=== PATIENT | female | born 1970 | race Caucasian/White ===

== ENCOUNTER 2017-06-15 15:51 | Emergency (ER) | payer OTHER ==
[2017-06-15 16:03] VITALS: BP 147/107
--- NOTE | 2017-06-15 16:08 | UC ---
Abdominal Pain Female HPI - HPI Summary HPI Summary: 46 year old female presents with complains of severe LLQ pain. I am concerned about diverticulitis and will send her to the ER. - History of Current Complaint Chief Complaint: UCGeneralIllness Stated Complaint: PERSONAL Time Seen by Provider: 06/15/17 15:53 Hx Obtained From: Patient Onset/Duration: Sudden Onset Severity Initially: Moderate Severity Currently: Moderate Pain Scale Used: 0-10 Numeric - 8 Location: Discrete At: LLQ Radiates to: Back Allergies/Adverse Reactions: Allergies Allergy/AdvReac Type Severity Reaction Status Date / Time No Known Allergies Allergy Verified 06/15/17 15:54 Home Medications: Home Medications Albuterol HFA INHALER* [Ventolin HFA Inhaler*] 1 puff DAILY 06/15/17 [History Confirmed 06/15/17] Loratadine [Claritin] 10 mg DAILY 06/15/17 [History Confirmed 06/15/17] Montelukast Sodium TAB* [Singulair 10 MG TAB*] 10 mg DAILY 06/15/17 [History Confirmed 06/15/17] PMH/Surg Hx/FS Hx/Imm Hx Previously Healthy: Yes - Surgical History Surgical History: None - Social History Alcohol Use: Occasionally Substance Use Type: None Smoking Status (MU): Heavy Every Day Tobacco Smoker Type: Cigarettes Amount Used/How Often: 1 PPD - Immunization History Most Recent Influenza Vaccination: 2017 Review of Systems Constitutional: Negative Skin: Negative Eyes: Negative ENT: Negative Respiratory: Negative Cardiovascular: Negative Gastrointestinal: Abdominal Pain - LLQ Genitourinary: Negative Motor: Negative Neurovascular: Negative Musculoskeletal: Negative Neurological: Negative Psychological: Negative All Other Systems Reviewed And Are Negative: Yes Physical Exam Triage Information Reviewed: Yes Vital Signs: Initial Vital Signs Temp 36.0 C 06/15/17 15:56 Pulse 115 06/15/17 15:56 Resp 18 06/15/17 15:56 BP 147/107 06/15/17 15:56 Pulse Ox 99 06/15/17 15:56 Vital Signs Reviewed: Yes Eye Exam: Normal ENT Exam: Normal Dental Exam: Normal Neck exam: Normal Neck: Positive: 1 Respiratory Exam: Normal Cardiovascular Exam: Normal Abdomen Description: Positive: Other: - LLQ PAIN Musculoskeletal Exam: Normal Neurological Exam: Normal Psychological Exam: Normal Skin Exam: Normal Abd Pain Female Course/Dx - Differential Dx/Diagnosis Provider Diagnoses: LLQ PAIN Discharge - Discharge Plan Condition: Stable Disposition: OTHER Discharge Disposition Comment: patient suggested to go to the er for severe llq pain Patient Education Materials: Diverticulitis (ED) Referrals: No Primary Care Phys,NOPCP [Primary Care Provider] -
== END 2017-06-15 16:17 ==
LOC: UCCORT 15:51
DX: R10.32 Left lower quadrant pain (principal); F17.210 Nicotine dependence, cigarettes, uncomplicated
CPT/HCPCS: 99212; G0463

== ENCOUNTER 2018-07-16 18:00 | Emergency (ER) | payer OTHER ==
[2018-07-16 18:32] VITALS: BP 141/74
--- NOTE | 2018-07-16 19:10 | UC ---
Ear Complaint HPI - HPI Summary HPI Summary: right ear pain and throbbing for a couple of days with decreased hearing - History of Current Complaint Chief Complaint: UCEar Stated Complaint: RIGHT EAR PAIN Time Seen by Provider: 07/16/18 19:09 Hx Obtained From: Patient Hx Last Menstrual Period: no menses; early menopause ?: No Onset/Duration: Sudden Onset, Lasting Days - 3, Still Present Pain Intensity: 6 Pain Scale Used: 0-10 Numeric Aggravating Factors: Nothing Alleviating Factors: Nothing - Allergies/Home Medications Allergies/Adverse Reactions: Allergies Allergy/AdvReac Type Severity Reaction Status Date / Time fluconazole Allergy Rash Verified 07/16/18 18:26 Home Medications: Home Medications Varenicline Tartrate [Chantix] 1 mg BID 07/16/18 [History Confirmed 07/16/18] PMH/Surg Hx/FS Hx/Imm Hx Previously Healthy: No Respiratory History: Asthma - Surgical History Surgical History: None - Family History Known Family History: Positive: None - Social History Occupation: Disabled Lives: With Family Alcohol Use: Occasionally Substance Use Type: None Smoking Status (MU): Heavy Every Day Tobacco Smoker Type: Cigarettes Amount Used/How Often: 1/2 PPD - Immunization History Most Recent Influenza Vaccination: 2017 Review of Systems All Other Systems Reviewed And Are Negative: Yes Constitutional: Positive: Negative Skin: Positive: Negative Eyes: Positive: Negative ENT: Positive: Ear Ache - right ear pain Respiratory: Positive: Negative Cardiovascular: Positive: Negative Gastrointestinal: Positive: Negative Genitourinary: Positive: Negative Motor: Positive: Negative Neurovascular: Positive: Negative Musculoskeletal: Positive: Negative Neurological: Positive: Negative Psychological: Positive: Negative Is Patient Immunocompromised?: No Physical Exam Triage Information Reviewed: Yes Appearance: Well-Appearing, No Pain Distress, Obese Vital Signs: Initial Vital Signs Temp 97.9 F 07/16/18 18:28 Pulse 80 07/16/18 18:28 Resp 19 07/16/18 18:28 BP 141/74 07/16/18 18:28 Pulse Ox 99 07/16/18 18:28 Vital Signs Reviewed: Yes Eye Exam: Normal Eyes: Positive: Conjunctiva Clear ENT Exam: Normal ENT: Positive: Normal ENT inspection, Hearing grossly normal, Pharynx normal, TMs normal - left, TM bulging - right, Uvula midline. Negative: Nasal congestion, Tonsillar swelling, Tonsillar exudate, Trismus, Muffled voice, Hoarse voice, Sinus tenderness Neck exam: Normal Neck: Positive: Supple, Nontender, No Lymphadenopathy Respiratory Exam: Normal Respiratory: Positive: Chest non-tender, Lungs clear, Normal breath sounds, No respiratory distress, No accessory muscle use Cardiovascular Exam: Normal Cardiovascular: Positive: RRR, No Murmur, Pulses Normal, Brisk Capillary Refill Musculoskeletal Exam: Normal Musculoskeletal: Positive: Strength Intact, ROM Intact, No Edema Neurological Exam: Normal Neurological: Positive: Alert, Muscle Tone Normal Psychological Exam: Normal Skin Exam: Normal Ear Complaint Course/Dx - Course Course Of Treatment: continue with mucolytic and decongestant, tylenol / ibuprofen for pain augmentin follow with pcp prn - Differential Dx/Diagnosis Provider Diagnosis: Acute serous otitis media of right ear without rupture Discharge - Sign-Out/Discharge Documenting (check all that apply): Patient Departure All imaging exams completed and their final reports reviewed: No Studies - Discharge Plan Condition: Stable Disposition: HOME Prescriptions: Amoxicillin/Clavulanate TAB* [Augmentin TAB 875*] 875 mg PO BID 9 Days #18 tab Patient Education Materials: Antitussive/Decongestant (By mouth), Ear Infection (ED), Hypertension (ED) Referrals: Aubrie Meraz [Primary Care Provider] - 2 Weeks - Billing Disposition and Condition Condition: STABLE Disposition: Home
[2018-07-16] MEDS ORDERED: Amoxicillin/Clavulanate TAB* 875 MG PO ONE ×2 (19:24→19:25)
== END 2018-07-16 19:36 | disposition home or self-care (01) ==
LOC: UCCORT 18:00
DX: H65.01 Acute serous otitis media, right ear (principal); Z88.3 Allergy status to other anti-infective agents; F17.210 Nicotine dependence, cigarettes, uncomplicated
CPT/HCPCS: 99212; A9270-GY; G0463

== ENCOUNTER 2019-02-01 20:14 | Emergency (ER) | payer OTHER ==
[2019-02-01 20:26] VITALS: BP 142/86
[2019-02-01] MEDS ORDERED: Phenazopyridine TAB* 100 MG PO ONE (20:47)
[2019-02-01] MEDS ORDERED: Cephalexin CAP* 500 MG PO ONE (20:47)
--- NOTE | 2019-02-01 20:47 | UC ---
UC General HPI - HPI Summary HPI Summary: pt c/o a uti. describes as burning with urination plus some blood, frequency and urgency. hx same. denie fever, abdominal pain and flank pain. - History of Current Complaint Chief Complaint: UCGU Stated Complaint: URINARY Hx Obtained From: Patient Hx Last Menstrual Period: no menses; early menopause Pain Intensity: 10 - Allergy/Home Medications Allergies/Adverse Reactions: Allergies Allergy/AdvReac Type Severity Reaction Status Date / Time fluconazole Allergy Rash Verified 02/01/19 20:27 PMH/Surg Hx/FS Hx/Imm Hx Respiratory History: Asthma - Surgical History Surgical History: None - Family History Known Family History: Positive: None - Social History Alcohol Use: Occasionally Substance Use Type: None Smoking Status (MU): Heavy Every Day Tobacco Smoker Type: Cigarettes Amount Used/How Often: 1/2 PPD - Immunization History Most Recent Influenza Vaccination: 2017 Review of Systems All Other Systems Reviewed And Are Negative: No Constitutional: Negative: Fever, Chills Gastrointestinal: Negative: Abdominal Pain Genitourinary: Positive: Dysuria, Hematuria, Frequency, Urgency. Negative: Vaginal/Penile Discharge Physical Exam Triage Information Reviewed: Yes Appearance: Well-Appearing Vital Signs: Initial Vital Signs Temp 96.2 F 02/01/19 20:23 Pulse 100 02/01/19 20:23 Resp 18 02/01/19 20:23 BP 142/86 02/01/19 20:23 Pulse Ox 98 02/01/19 20:23 Vital Signs Reviewed: Yes Eyes: Positive: Conjunctiva Clear Neck: Positive: Supple Respiratory: Positive: Lungs clear Cardiovascular: Positive: RRR Abdomen Description: Positive: Nontender, No Organomegaly, Soft. Negative: CVA Tenderness (R), CVA Tenderness (L) Bowel Sounds: Positive: Present Musculoskeletal: Positive: ROM Intact Neurological: Positive: Alert Psychological: Positive: Age Appropriate Behavior Skin Exam: Normal Diagnostics - Laboratory Lab Results: u/a= positive for protein, blood and leukocytes. culture pending. Course/Dx - Diagnoses Provider Diagnosis: UTI (urinary tract infection) Discharge - Sign-Out/Discharge Documenting (check all that apply): Patient Departure All imaging exams completed and their final reports reviewed: No Studies - Discharge Plan Condition: Stable Disposition: HOME Prescriptions: Cephalexin CAP* [Keflex CAP*] 500 mg PO BID 7 Days #14 cap Patient Education Materials: Urinary Tract Infection in Women (ED) Referrals: Aubrie Meraz [Primary Care Provider] - 7 Days - Billing Disposition and Condition Condition: STABLE Disposition: Home
== END 2019-02-01 21:00 | disposition home or self-care (01) ==
LOC: UCCORT 20:14
DX: N39.0 Urinary tract infection, site not specified (principal); F17.210 Nicotine dependence, cigarettes, uncomplicated
CPT/HCPCS: 81003; 87077; 87086; 87186; 99212; A9270-GY; G0463

== ENCOUNTER 2024-05-04 17:09 | Observation (INO) ==
[2024-05-04] MEDS: Ondansetron 4 mg VIAL 2 MG/ML 2 ml VIAL IV ONE (17:35)
[2024-05-04 17:40] LABS: Hematocrit 31.7 % (35-45); Mean Corpuscular Hemoglobin 31.3 pg (27-33); Mean Corpuscular Hgb Conc 31.4 g/dL (31-36); Mean Corpuscular Volume 99.6 fL (80-97); Mean Platelet Volume 8.7 fL (7.5-11.2); Platelet Count 293 10^3/uL (150-450); Red Blood Count 3.18 10^6/uL (3.63-4.92); Red Cell Distribution Width 18.5 % (12-17); White Blood Count 41.5 10^3/uL (3.8-11.8)
[2024-05-04 17:52] LABS: INR 1.41 (0.85-1.14)
[2024-05-04 18:04] LABS: High Sens Troponin Baseline 9 pg/mL (<15)
[2024-05-04 18:19] LABS: ALT 32 U/L (7-52); AST 54 U/L (13-39); Albumin 3.2 g/dL (3.2-5.2); Albumin/Globulin Ratio 1.1 (1-3); Alkaline Phosphatase 592 U/L (35-149); Anion Gap 12 mmol/L (2-16); Blood Urea Nitrogen 16 mg/dL (6-24); CO2 Carbon Dioxide 30 mmol/L (22-32); Calcium 9.5 mg/dL (8.6-10.3); Chloride 91 mmol/L (101-111); Creatinine, Serum 2.52 mg/dL (0.51-0.95); Glucose 109 mg/dL (70-100); Potassium 4.6 mmol/L (3.5-5.0); Sodium 133 mmol/L (135-145); Total Bilirubin 2.1 mg/dL (0.2-1.0); Total Protein 6.2 g/dL (6.4-8.9); eGFR CKD-EPI 21.9 (>60)
[2024-05-04] MEDS: Prochlorperazine 5 mg/ml 2 ml VIAL (10 mg) IV ONE (18:43)
[2024-05-04] MEDS: Lactated Ringers 1000 ml BAG 1,000 ML IV ONE (18:43)
[2024-05-04] MEDS ORDERED: Vancomycin 1,000 MG in NS 0.9% 250 ml 250 ML IVPB ONE (18:58)
[2024-05-04 19:04] LABS: Urine Appearance Turbid; Urine Bilirubin 1+ (Negative); Urine Blood 3+ (Negative); Urine Color Dark-Yellow; Urine Glucose Negative (Negative); Urine Ketones Negative (Negative); Urine Nitrite Negative (Negative); Urine Protein 3+ (>=300 mg/dL) (Negative); Urine Specific Gravity 1.017 (1.002-1.030); Urine Urobilinogen 1+ (Negative); Urine pH 5.5 (5.0-8.0)
[2024-05-04 19:21] LABS: ABS Basophils 0.5 10^3/uL (0.0-0.1); ABS Eosinophils 0.2 10^3/uL (0.0-0.5); ABS Lymphocytes 1.5 10^3/uL (1.0-4.8); ABS Monocytes 1.6 10^3/uL (0.0-0.9); ABS Neutrophils 37.7 10^3/uL (1.5-7.6); ABS Nucleated RBC 0.02 10^3/ul; Anisocytosis 2+; Eosinophil % 0.5 %; Giant Platelets Present; Lymphocyte % 3.5 %; Spherocytes 2+
[2024-05-04 19:25] LABS: High Sensitivity Troponin 1 Hr 10 pg/mL (<15)
[2024-05-04 19:25] LABS: Budding Yeast Present /HPF (Absent); Urine Bacteria 1+ /HPF (Absent); Urine Red Blood Cell 3+(>10/hpf) /HPF (0-Trace); Urine Squamous Epithelial Cell Present /HPF (Absent); Urine Transitional Epithelial Present /HPF (Absent); Urine White Blood Cell 3+(>20/hpf) /HPF (0-Trace)
[2024-05-04] MEDS: Piperacillin/Tazobac 3.375 BAG 3.375 GM/100 ML BAG IV ONE (20:06)
[2024-05-04] MEDS: Vancomycin 2,000 MG in NS 0.9% 500 ml BAG 500 ML IVPB ONE (20:43)
[2024-05-04 22:07] LABS: Magnesium 1.6 mg/dL (1.9-2.7)
[2024-05-04] MEDS ORDERED: Albuterol HFA INHALER 8 gm MDI INH PRN (23:10)
[2024-05-04] MEDS ORDERED: Albuterol/Ipratropium NEB.SOL (2.5/0.5 MG) 3 ML NEB.SOLN INH PRN (23:10)
[2024-05-05] MEDS: Magnesium Sulfate 2 gm BAG 2 GM/50 ML BAG IVPB ONE (00:25)
[2024-05-05] MEDS ORDERED: Sulfur Hexaflouride MICROSPHR 25 MG VIAL IV PRN (00:28)
[2024-05-05] MEDS ORDERED: Acetaminophen IV 1 GM/100ML 1,000 MG/100 ML BAG IV PRN (01:11)
[2024-05-05] MEDS: Morphine 2 MG/ML SYRINGE IV PRN (01:21)
[2024-05-05 01:32] LABS: % Iron Saturation 13 % (15-55); .Transferrin 185 mg/dL (203-362); Cholesterol 168 mg/dL; HDL Cholesterol 19.5 mg/dL; Iron 33 ug/dL (50-212); LDL Cholesterol 88 mg/dL; Total Iron Binding Capacity 259 mcg/dL (250-450); Triglycerides 301 mg/dL; Unsaturated Iron Binding 226 ug/dL
[2024-05-05 01:46] LABS: TSH Ultra Thyroid Stim Horm 15.48 mcIU/mL (0.34-5.60)
[2024-05-05 01:57] LABS: Ferritin 340.3 ng/mL (11-307)
[2024-05-05 01:58] LABS: Folate > 20.00 ng/mL (5.90-24.80)
[2024-05-05 01:59] LABS: Vitamin B12 1081 pg/mL (180-914)
[2024-05-05 04:00] LABS: Urine Creatinine 148.01 mg/dL
[2024-05-05] MEDS ORDERED: Nicotine GUM 4MG FRUIT FLAVOR PO PRN (04:22)
[2024-05-05 05:31] LABS: UR Microalbumin (mg/L) 3020.7 mg/L; Urine Microalbumin/Creatinine 2040.8 mcg/mg (<31)
[2024-05-05 07:36] VITALS: BP 96/80
[2024-05-05] MEDS ORDERED: Nicotine PATCH 21 MG/24 HR PATCH TRANSDERM SCH (09:00)
[2024-05-05] MEDS ORDERED: Heparin 5000 UNITS/ML 1 mL VIAL SUBCUT SCH (21:00)
== END 2024-05-05 07:37 | disposition left against medical advice (07) ==
LOC: EDHOLD 17:09 → ED 17:09 → EDHOLD 05-05 07:36
PROVIDERS: ADMIT Internal Medicine; ATTEND Internal Medicine

== ENCOUNTER 2024-05-14 18:04 | Inpatient (IN) ==
[2024-05-14 19:21] LABS: Hemoglobin 9.6 g/dL (11.5-14.3); Mean Corpuscular Hemoglobin 30.6 pg (27-33); Mean Corpuscular Hgb Conc 31.1 g/dL (31-36); Mean Corpuscular Volume 98.6 fL (80-97); Mean Platelet Volume 8.1 fL (7.5-11.2); Platelet Count 322 10^3/uL (150-450); Red Blood Count 3.15 10^6/uL (3.63-4.92); White Blood Count 36.5 10^3/uL (3.8-11.8)
[2024-05-14 19:27] LABS: INR 1.26 (0.85-1.14)
[2024-05-14] MEDS: cefTRIAXone 1 gm/50 mL D5W 1 GM/50 ML BAG IV ONE (19:30)
[2024-05-14] MEDS: Furosemide 40 mg/4 ml IV VIAL IV ONE (19:41)
[2024-05-14 19:50] LABS: ABS Basophils 0.2 10^3/uL (0.0-0.1); ABS Eosinophils 0.3 10^3/uL (0.0-0.5); ABS Lymphocytes 1.6 10^3/uL (1.0-4.8); ABS Monocytes 1.1 10^3/uL (0.0-0.9); ABS Neutrophils 33.3 10^3/uL (1.5-7.6); ABS Nucleated RBC 0.01 10^3/ul; Anisocytosis 1+; Eosinophil % 0.7 %; Hypochromasia 1+; Lymphocyte % 4.5 %; Polychromasia 1+
[2024-05-14 20:07] LABS: Albumin/Globulin Ratio 1.1 (1-3); C Reactive Protein 49.13 mg/L (<8.01); Calcium 9.4 mg/dL (8.6-10.3); Creatinine, Serum 1.53 mg/dL (0.51-0.95); Globulin 2.8 g/dL (2-4); Potassium 5.3 mmol/L (3.5-5.0); Total Bilirubin 1.6 mg/dL (0.2-1.0); Total Protein 5.8 g/dL (6.4-8.9); eGFR CKD-EPI 39.9 (>60)
[2024-05-14] MEDS: methylPREDNISolone SOD SUCC 125 mg 2 ML VIAL IV ONE (20:41)
[2024-05-14] MEDS: Azithromycin 500 mg/250 ml NS 500 MG/250 ML BAG IVPB ONE (20:43)
[2024-05-14 20:50] LABS: High Sensitivity Troponin 1 Hr 10 pg/mL (<15)
[2024-05-14] MEDS ORDERED: Albuterol HFA INHALER 8 gm MDI INH PRN (21:36)
[2024-05-14] MEDS: Albuterol/Ipratropium NEB.SOL (2.5/0.5 MG) 3 ML NEB.SOLN INH ONE (21:44)
[2024-05-14] MEDS: Albumin Human 5% 25 GM/500 ML BTL IV ONE (22:03)
[2024-05-14] MEDS: Albumin Human 5% 25 GM/500 ML BTL IV SCH (22:08)
[2024-05-14 22:24] LABS: Free T4 0.74 ng/dL (0.61-1.12)
[2024-05-14 23:51] LABS: TSH Ultra Thyroid Stim Horm 17.27 mcIU/mL (0.34-5.60)
[2024-05-15 00:09] LABS: Direct Bilirubin 0.8 mg/dL (0.03-0.18)
[2024-05-15] MEDS: fentaNYL 100 mcg/2 ml 50 MCG/ML VIAL IV SLOW PU PRN (03:00)
[2024-05-15] MEDS: Amiodarone 150 mg IVPREMIX 150 MG/100 ML BAG IV ONE (03:24)
[2024-05-15] MEDS: Amiodarone 360 MG IVPREMIX 360 MG/200 ML BAG IV ONE (03:33)
[2024-05-15] MEDS: Amiodarone 360 MG IVPREMIX 360 MG/200 ML BAG IV SCH ×2 (03:35→10:52)
[2024-05-15] MEDS: fentaNYL 100 mcg/2 ml 50 MCG/ML VIAL ONE (03:44)
[2024-05-15 04:21] LABS: Hematocrit 28.3 % (35-45); Hemoglobin 8.9 g/dL (11.5-14.3); Mean Corpuscular Hemoglobin 30.7 pg (27-33); Mean Corpuscular Hgb Conc 31.4 g/dL (31-36); Mean Corpuscular Volume 97.8 fL (80-97); Mean Platelet Volume 8.1 fL (7.5-11.2); Platelet Count 278 10^3/uL (150-450); Red Blood Count 2.89 10^6/uL (3.63-4.92); Red Cell Distribution Width 18.1 % (12-17); White Blood Count 31.8 10^3/uL (3.8-11.8)
[2024-05-15] MEDS: Mometasone/Formoter 100/5 MDI INH SCH (04:22)
[2024-05-15] MEDS: Albuterol/Ipratropium NEB.SOL (2.5/0.5 MG) 3 ML NEB.SOLN INH PRN (04:23)
[2024-05-15 04:42] LABS: PCO2 Arterial 47 mmHg (35-45); PO2 Arterial 77 mmHg (80-100)
[2024-05-15 04:47] LABS: ABS Basophils 0.2 10^3/uL (0.0-0.1); ABS Eosinophils 0.2 10^3/uL (0.0-0.5); ABS Lymphocytes 1.7 10^3/uL (1.0-4.8); ABS Monocytes 1.1 10^3/uL (0.0-0.9); ABS Neutrophils 26.3 10^3/uL (1.5-7.6); ABS Nucleated RBC 0.01 10^3/ul; Eosinophil % 0.8 %; Lymphocyte % 5.7 %
[2024-05-15 04:48] LABS: Anisocytosis 1+; Polychromasia 1+
[2024-05-15 04:52] LABS: Creatinine, Serum 1.54 mg/dL (0.51-0.95); Magnesium 1.6 mg/dL (1.9-2.7); Potassium 5.2 mmol/L (3.5-5.0); eGFR CKD-EPI 39.6 (>60)
[2024-05-15 05:15] LABS: HIV 4th Generation Nonreactive (Nonreactive)
[2024-05-15] MEDS: Magnesium Sulfate 2 gm BAG 2 GM/50 ML BAG IVPB ONE ×2 (05:36→15:33)
[2024-05-15] MEDS: Magnesium Sulfate 2 gm BAG 2 GM/50 ML BAG ONE (05:40)
[2024-05-15] MEDS: SPIRIVA Respimat (tiotropium) 2.5 mcg/inh Inhaler INH SCH (05:40)
[2024-05-15] MEDS: Nicotine GUM 4MG FRUIT FLAVOR PO PRN (07:57)
[2024-05-15] MEDS: Aspirin EC 81 mg TAB.EC (enteric coated) PO SCH (07:57)
[2024-05-15 08:06] LABS: Hepatitis B Surface Ab Not Immune (Immune)
[2024-05-15 08:12] LABS: Hepatitis C Antibody Reactive (Negative)
[2024-05-15] MEDS: Albumin Human 25% 25 GM/100 ML BTL IV ONE (10:07)
[2024-05-15] MEDS: HYDROmorphone 0.5 MG/0.5 ML SYRINGE IV SLOW PU PRN ×2 (10:08→14:19)
[2024-05-15] MEDS: .Amiodarone 24HR ONLY IV Protocol Order Note IV ONE (11:20)
[2024-05-15] MEDS: Sulfur Hexaflouride MICROSPHR 25 MG VIAL IV PRN (11:25)
[2024-05-15] MEDS: Furosemide 40 mg/4 ml IV VIAL IV SLOW PU ONE (13:00)
[2024-05-15] MEDS: Furosemide 40 mg/4 ml IV VIAL IV ONE (14:19)
[2024-05-15 15:21] LABS: C Reactive Protein 43.55 mg/L (<8.01); Rheumatoid Factor < 10 IU/mL (<15)
[2024-05-15 16:07] LABS: Hepatitis B Surface Antigen Nonreactive (Nonreactive)
[2024-05-15 17:36] LABS: Hepatitis C Antibody Reactive (Negative)
[2024-05-15] MEDS ORDERED: cefTRIAXone 1 gm/50 mL D5W 1 GM/50 ML BAG IV SCH (20:00)
[2024-05-15] MEDS: Metoprolol Tartrate 5 mg VIAL 5 ml VIAL (1 mg/ml) IV PRN (20:06)
[2024-05-15] MEDS ORDERED: Azithromycin 500 mg/250 ml NS 500 MG/250 ML BAG IVPB SCH (21:00)
[2024-05-16 04:42] LABS: Hematocrit 29.2 % (35-45); Hemoglobin 9.1 g/dL (11.5-14.3); Mean Corpuscular Hemoglobin 31.1 pg (27-33); Mean Corpuscular Hgb Conc 31.1 g/dL (31-36); Mean Platelet Volume 8.4 fL (7.5-11.2); Platelet Count 290 10^3/uL (150-450); Red Blood Count 2.92 10^6/uL (3.63-4.92); Red Cell Distribution Width 18.3 % (12-17); White Blood Count 35.9 10^3/uL (3.8-11.8)
[2024-05-16 05:16] LABS: Albumin 3.4 g/dL (3.2-5.2); Albumin/Globulin Ratio 1.4 (1-3); Calcium 9.3 mg/dL (8.6-10.3); Creatinine, Serum 1.66 mg/dL (0.51-0.95); Globulin 2.5 g/dL (2-4); Magnesium 2.2 mg/dL (1.9-2.7); Potassium 5.2 mmol/L (3.5-5.0); Total Bilirubin 1.3 mg/dL (0.2-1.0); Total Protein 5.9 g/dL (6.4-8.9); eGFR CKD-EPI 36.2 (>60)
[2024-05-16 05:53] LABS: ABS Basophils 0.1 10^3/uL (0.0-0.1); ABS Eosinophils 0.1 10^3/uL (0.0-0.5); ABS Lymphocytes 1.7 10^3/uL (1.0-4.8); ABS Monocytes 1.2 10^3/uL (0.0-0.9); ABS Neutrophils 31.4 10^3/uL (1.5-7.6); ABS Nucleated RBC 0.03 10^3/ul; Anisocytosis 1+; Eosinophil % 0.3 %; Nucleated Red Blood Cells % 0.1 %/100WBC (0.0-0.8); Polychromasia 2+
[2024-05-16] MEDS: Amiodarone 400 mg TAB PO SCH (08:44)
[2024-05-16] MEDS: Furosemide 100 mg/10 ml IV VIAL IV SCH ×3 (08:47→18:35)
[2024-05-16 09:38] LABS: Ferritin 236.3 ng/mL (11-307)
[2024-05-16] MEDS: HYDROmorphone 1 MG/1 ML SYRINGE IV ONE (09:42)
[2024-05-16] MEDS: HYDROmorphone 1 MG/1 ML SYRINGE ONE (10:18)
[2024-05-16] MEDS: Lidocaine 1% VIAL 10 MG/ML 30 ML VIAL INJ ONE (10:18)
[2024-05-16] MEDS: Lidocaine 1% VIAL 10 MG/ML 30 ML VIAL ONE (10:18)
[2024-05-16] MEDS: HYDROmorphone 1 MG/1 ML SYRINGE IV PRN (14:02)
[2024-05-16 15:13] LABS: Urine TP Concentration 287 mg/dL
[2024-05-16 17:11] LABS: Urine Appearance Clear; Urine Bilirubin Negative (Negative); Urine Blood 3+ (Negative); Urine Color Yellow; Urine Glucose Negative (Negative); Urine Ketones Negative (Negative); Urine Nitrite Negative (Negative); Urine Protein 1+ (>=30 mg/dL) (Negative); Urine Urobilinogen Negative (Negative); Urine pH 5.5 (5.0-8.0)
[2024-05-16 17:29] LABS: Urine Amorphous Crystals Present /HPF (Absent); Urine Bacteria Absent /HPF (Absent); Urine Red Blood Cell 3+(>10/hpf) /HPF (0-Trace); Urine Squamous Epithelial Cell Present /HPF (Absent); Urine White Blood Cell 1+(6-10/hpf) /HPF (0-Trace)
[2024-05-16] MEDS: HYDROmorphone 0.5 MG/0.5 ML SYRINGE IV PRN (18:35)
[2024-05-17 01:05] LABS: Anion Gap 9 mmol/L (2-16); Blood Urea Nitrogen 38 mg/dL (6-24); CO2 Carbon Dioxide 28 mmol/L (22-32); Calcium 9.2 mg/dL (8.6-10.3); Chloride 98 mmol/L (101-111); Creatinine, Serum 1.77 mg/dL (0.51-0.95); Glucose 104 mg/dL (70-100); Sodium 135 mmol/L (135-145); eGFR CKD-EPI 33.5 (>60)
[2024-05-17 02:20] LABS: Potassium Redraw 5.4 mmol/L (3.5-5.0)
[2024-05-17 04:52] LABS: Hematocrit 29.8 % (35-45); Hemoglobin 9.1 g/dL (11.5-14.3); Mean Corpuscular Hgb Conc 30.6 g/dL (31-36); Mean Corpuscular Volume 101.1 fL (80-97); Mean Platelet Volume 9.2 fL (7.5-11.2); Platelet Count 266 10^3/uL (150-450); Red Blood Count 2.95 10^6/uL (3.63-4.92); Red Cell Distribution Width 18.8 % (12-17); White Blood Count 23.3 10^3/uL (3.8-11.8)
[2024-05-17 05:28] LABS: Anion Gap 9 mmol/L (2-16); Blood Urea Nitrogen 39 mg/dL (6-24); CO2 Carbon Dioxide 26 mmol/L (22-32); Calcium 9.1 mg/dL (8.6-10.3); Chloride 99 mmol/L (101-111); Creatinine, Serum 1.75 mg/dL (0.51-0.95); Glucose 87 mg/dL (70-100); Sodium 134 mmol/L (135-145)
[2024-05-17 05:44] LABS: ABS Basophils 0.1 10^3/uL (0.0-0.1); ABS Eosinophils 0.1 10^3/uL (0.0-0.5); ABS Lymphocytes 1.1 10^3/uL (1.0-4.8); ABS Monocytes 0.9 10^3/uL (0.0-0.9); ABS Neutrophils 21.2 10^3/uL (1.5-7.6); ABS Nucleated RBC 0.02 10^3/ul; Eosinophil % 0.4 %; Lymphocyte % 4.7 %; Nucleated Red Blood Cells % 0.1 %/100WBC (0.0-0.8)
[2024-05-17 05:45] LABS: Polychromasia 2+
[2024-05-17] MEDS ORDERED: HYDROmorphone 1 MG/1 ML SYRINGE IV SLOW PU PRN (08:34)
[2024-05-17] MEDS: HYDROmorphone 0.5 MG/0.5 ML SYRINGE IV PRN (08:44)
[2024-05-17] MEDS: HYDROmorphone 1 MG/1 ML SYRINGE IV SLOW PU PRN (11:35)
[2024-05-17 13:52] LABS: Kappa Free Light Chain 10.9 mg/dL; Lambda Free Light Chain, S 5.76 mg/dL
[2024-05-17 14:44] LABS: Complement C3 145 mg/dL (75 - 175)
[2024-05-18 04:26] LABS: Hematocrit 29.2 % (35-45); Hemoglobin 9.2 g/dL (11.5-14.3); Mean Corpuscular Hemoglobin 31.3 pg (27-33); Mean Corpuscular Hgb Conc 31.4 g/dL (31-36); Mean Corpuscular Volume 99.6 fL (80-97); Mean Platelet Volume 8.8 fL (7.5-11.2); Platelet Count 268 10^3/uL (150-450); Red Blood Count 2.93 10^6/uL (3.63-4.92); Red Cell Distribution Width 18.5 % (12-17); White Blood Count 23.3 10^3/uL (3.8-11.8)
[2024-05-18 05:14] LABS: Potassium 5.2 mmol/L (3.5-5.0)
[2024-05-18 05:15] LABS: Calcium 9.1 mg/dL (8.6-10.3); Creatinine, Serum 1.78 mg/dL (0.51-0.95); eGFR CKD-EPI 33.3 (>60)
[2024-05-18] MEDS: SODIUM ZIRCONIUM CYCLOSILICATE 10 GM PACKET PO ONE (06:11)
[2024-05-18 06:13] LABS: ABS Basophils 0.1 10^3/uL (0.0-0.1); ABS Lymphocytes 1.1 10^3/uL (1.0-4.8); ABS Monocytes 0.7 10^3/uL (0.0-0.9); ABS Neutrophils 21.2 10^3/uL (1.5-7.6); ABS Nucleated RBC 0.02 10^3/ul; Anisocytosis 1+; Eosinophil % 0.1 %; Lymphocyte % 4.9 %; Nucleated Red Blood Cells % 0.1 %/100WBC (0.0-0.8); Polychromasia 1+
[2024-05-18 12:08] LABS: ActiTest Interpretation no activity; Alanine Aminotransferase (ALT) 22 U/L (7-45); Alpha-2-Macroglobulin, S 254 mg/dL (100 - 280); Apolipoprotein A1, S 98 mg/dL (>=140); Bilirubin, Total, S 1.4 mg/dL (0.0 - 1.2); BioPredictive Serial Number 5168376; FibroTest Interpretation severe fibrosis; Gamma Glutamyltransferase GGT 742 U/L (5 - 36); Haptoglobin, S 284 mg/dL (30 - 200)
[2024-05-18 12:47] LABS: C-ANCA Negative (Negative); P-ANCA Negative (Negative)
[2024-05-18 15:03] LABS: Flag, M-protein Isotype Negative (Negative); Immunoglobulin A (IgA), S 336 mg/dL (61 - 356); Immunoglobulin G (IgG), S 985 mg/dL (767 - 1590); Immunoglobulin M (IgM), S 179 mg/dL (37 - 286)
[2024-05-18 16:26] LABS: PLA2R, Immunofluorescence, S Indeterminate (Negative)
[2024-05-19 06:47] LABS: Hematocrit 26.6 % (35-45); Hemoglobin 8.4 g/dL (11.5-14.3); Mean Corpuscular Hemoglobin 31.3 pg (27-33); Mean Corpuscular Hgb Conc 31.6 g/dL (31-36); Mean Corpuscular Volume 98.9 fL (80-97); Mean Platelet Volume 8.7 fL (7.5-11.2); Platelet Count 256 10^3/uL (150-450); Red Blood Count 2.69 10^6/uL (3.63-4.92); Red Cell Distribution Width 17.9 % (12-17); White Blood Count 22.2 10^3/uL (3.8-11.8)
[2024-05-19 07:16] LABS: Calcium 8.9 mg/dL (8.6-10.3); Creatinine, Serum 1.9 mg/dL (0.51-0.95); Magnesium 1.8 mg/dL (1.9-2.7); Potassium 4.3 mmol/L (3.5-5.0); eGFR CKD-EPI 30.8 (>60)
[2024-05-19 08:29] LABS: ABS Basophils 0.2 10^3/uL (0.0-0.1); ABS Eosinophils 0.1 10^3/uL (0.0-0.5); ABS Lymphocytes 1.2 10^3/uL (1.0-4.8); ABS Monocytes 0.9 10^3/uL (0.0-0.9); ABS Neutrophils 19.7 10^3/uL (1.5-7.6); ABS Nucleated RBC 0.01 10^3/ul; Eosinophil % 0.5 %; Lymphocyte % 5.6 %
[2024-05-19 08:30] LABS: Anisocytosis 1+; Polychromasia 1+
[2024-05-20 05:43] LABS: Hematocrit 27.7 % (35-45); Hemoglobin 8.8 g/dL (11.5-14.3); Mean Corpuscular Hemoglobin 30.8 pg (27-33); Mean Corpuscular Hgb Conc 31.7 g/dL (31-36); Mean Corpuscular Volume 97.4 fL (80-97); Mean Platelet Volume 8.6 fL (7.5-11.2); Platelet Count 300 10^3/uL (150-450); Red Blood Count 2.85 10^6/uL (3.63-4.92); Red Cell Distribution Width 18.3 % (12-17); White Blood Count 18.6 10^3/uL (3.8-11.8)
[2024-05-20 06:11] LABS: Calcium 8.7 mg/dL (8.6-10.3); Creatinine, Serum 1.62 mg/dL (0.51-0.95); Magnesium 1.6 mg/dL (1.9-2.7); Potassium 3.9 mmol/L (3.5-5.0); eGFR CKD-EPI 37.3 (>60)
[2024-05-20 07:30] LABS: ABS Basophils 0.1 10^3/uL (0.0-0.1); ABS Eosinophils 0.2 10^3/uL (0.0-0.5); ABS Lymphocytes 1.3 10^3/uL (1.0-4.8); ABS Monocytes 0.9 10^3/uL (0.0-0.9); ABS Neutrophils 16.1 10^3/uL (1.5-7.6); ABS Nucleated RBC 0.01 10^3/ul; Anisocytosis 1+; Eosinophil % 0.9 %; Polychromasia 1+
[2024-05-20] MEDS: Magnesium Sulfate 2 gm BAG 2 GM/50 ML BAG IVPB ONE (11:13)
[2024-05-20] MEDS: Magnesium Sulfate IV 1GM/100ML 1 GM/100 ML BAG IV ONE (12:17)
[2024-05-21 06:24] LABS: Hematocrit 26.5 % (35-45); Hemoglobin 8.4 g/dL (11.5-14.3); Mean Corpuscular Hgb Conc 31.7 g/dL (31-36); Mean Corpuscular Volume 97.7 fL (80-97); Mean Platelet Volume 8.7 fL (7.5-11.2); Platelet Count 310 10^3/uL (150-450); Red Blood Count 2.72 10^6/uL (3.63-4.92); Red Cell Distribution Width 18.3 % (12-17); White Blood Count 21.7 10^3/uL (3.8-11.8)
[2024-05-21 06:34] LABS: Calcium 8.7 mg/dL (8.6-10.3); Creatinine, Serum 1.38 mg/dL (0.51-0.95); Magnesium 1.8 mg/dL (1.9-2.7); Potassium 4.1 mmol/L (3.5-5.0); eGFR CKD-EPI 45.2 (>60)
[2024-05-21 06:40] LABS: ABS Basophils 0.2 10^3/uL (0.0-0.1); ABS Eosinophils 0.2 10^3/uL (0.0-0.5); ABS Lymphocytes 1.2 10^3/uL (1.0-4.8); ABS Monocytes 0.9 10^3/uL (0.0-0.9); ABS Neutrophils 19.2 10^3/uL (1.5-7.6); ABS Nucleated RBC 0.03 10^3/ul; Anisocytosis 1+; Eosinophil % 1.1 %; Lymphocyte % 5.5 %; Nucleated Red Blood Cells % 0.1 %/100WBC (0.0-0.8); Polychromasia 1+
[2024-05-21] MEDS: Albumin Human 25% 25 GM/100 ML BTL IV ONE (21:35)
[2024-05-22 07:24] LABS: Hematocrit 27.2 % (35-45); Hemoglobin 8.7 g/dL (11.5-14.3); Mean Corpuscular Hgb Conc 31.9 g/dL (31-36); Mean Platelet Volume 8.5 fL (7.5-11.2); Platelet Count 314 10^3/uL (150-450); Red Blood Count 2.81 10^6/uL (3.63-4.92); Red Cell Distribution Width 18.1 % (12-17); White Blood Count 18.7 10^3/uL (3.8-11.8)
[2024-05-22 07:44] LABS: Albumin/Globulin Ratio 1.3 (1-3); Calcium 8.7 mg/dL (8.6-10.3); Creatinine, Serum 1.22 mg/dL (0.51-0.95); Globulin 2.4 g/dL (2-4); Magnesium 1.8 mg/dL (1.9-2.7); Potassium 4.2 mmol/L (3.5-5.0); Total Bilirubin 1.1 mg/dL (0.2-1.0); Total Protein 5.4 g/dL (6.4-8.9); eGFR CKD-EPI 52.4 (>60)
[2024-05-22 09:07] LABS: ABS Basophils 0.1 10^3/uL (0.0-0.1); ABS Eosinophils 0.2 10^3/uL (0.0-0.5); ABS Lymphocytes 1.2 10^3/uL (1.0-4.8); ABS Neutrophils 16.2 10^3/uL (1.5-7.6); ABS Nucleated RBC 0.01 10^3/ul; Anisocytosis 1+; Eosinophil % 1.2 %; Lymphocyte % 6.4 %; Polychromasia 1+
[2024-05-22] MEDS: Albumin Human 5% 25 GM/500 ML BTL IV ONE (21:47)
[2024-05-22] MEDS: Albumin Human 5% 25 GM/500 ML BTL IV SCH (22:37)
[2024-05-23 06:26] LABS: Calcium 8.7 mg/dL (8.6-10.3); Creatinine, Serum 0.99 mg/dL (0.51-0.95); Digoxin 2.3 ng/ml (0.8-2.0); Magnesium 1.7 mg/dL (1.9-2.7); Potassium 4.1 mmol/L (3.5-5.0); eGFR CKD-EPI 67.3 (>60)
[2024-05-23] MEDS: Magnesium Sulfate 2 gm BAG 2 GM/50 ML BAG IVPB ONE (10:27)
[2024-05-23 11:33] LABS: High Sensitivity Troponin 1 Hr 10 pg/mL (<15)
[2024-05-24 06:27] LABS: Hematocrit 26.7 % (35-45); Hemoglobin 8.5 g/dL (11.5-14.3); Mean Corpuscular Hemoglobin 30.7 pg (27-33); Mean Corpuscular Volume 96.1 fL (80-97); Mean Platelet Volume 8.3 fL (7.5-11.2); Platelet Count 318 10^3/uL (150-450); Red Blood Count 2.78 10^6/uL (3.63-4.92); Red Cell Distribution Width 18.2 % (12-17); White Blood Count 19.9 10^3/uL (3.8-11.8)
[2024-05-24 07:00] LABS: Digoxin 1.8 ng/ml (0.8-2.0)
[2024-05-24 07:28] LABS: ABS Basophils 0.2 10^3/uL (0.0-0.1); ABS Eosinophils 0.2 10^3/uL (0.0-0.5); ABS Lymphocytes 1.1 10^3/uL (1.0-4.8); ABS Monocytes 1.2 10^3/uL (0.0-0.9); ABS Neutrophils 17.1 10^3/uL (1.5-7.6); ABS Nucleated RBC 0.02 10^3/ul; Anisocytosis 1+; Lymphocyte % 5.6 %; Nucleated Red Blood Cells % 0.1 %/100WBC (0.0-0.8); Polychromasia 1+
[2024-05-24 10:32] LABS: Magnesium 1.8 mg/dL (1.9-2.7)
[2024-05-24 12:07] LABS: Urine Appearance Turbid; Urine Bilirubin Negative (Negative); Urine Blood 3+ (Negative); Urine Color Yellow; Urine Glucose Negative (Negative); Urine Ketones Negative (Negative); Urine Nitrite Negative (Negative); Urine Protein 3+ (>=300 mg/dL) (Negative); Urine Specific Gravity 1.013 (1.002-1.030); Urine Urobilinogen Negative (Negative)
[2024-05-24 12:22] LABS: Urine Bacteria 1+ /HPF (Absent); Urine Red Blood Cell 3+(>10/hpf) /HPF (0-Trace); Urine Squamous Epithelial Cell Present /HPF (Absent); Urine White Blood Cell 3+(>20/hpf) /HPF (0-Trace)
[2024-05-25 06:36] LABS: Hematocrit 27.4 % (35-45); Hemoglobin 8.6 g/dL (11.5-14.3); Mean Corpuscular Hemoglobin 30.1 pg (27-33); Mean Corpuscular Hgb Conc 31.2 g/dL (31-36); Mean Corpuscular Volume 96.3 fL (80-97); Mean Platelet Volume 8.6 fL (7.5-11.2); Platelet Count 325 10^3/uL (150-450); Red Blood Count 2.85 10^6/uL (3.63-4.92); Red Cell Distribution Width 18.1 % (12-17); White Blood Count 21.5 10^3/uL (3.8-11.8)
[2024-05-25 07:08] LABS: Albumin 2.9 g/dL (3.2-5.2); Albumin/Globulin Ratio 1.1 (1-3); Creatinine, Serum 0.97 mg/dL (0.51-0.95); Direct Bilirubin 1.2 mg/dL (0.03-0.18); Globulin 2.6 g/dL (2-4); Indirect Bilirubin 0.9 mg/dL (0.3-1.0); Potassium 3.6 mmol/L (3.5-5.0); Total Bilirubin 2.1 mg/dL (0.2-1.0); Total Protein 5.5 g/dL (6.4-8.9)
[2024-05-25 08:21] LABS: ABS Basophils 0.2 10^3/uL (0.0-0.1); ABS Eosinophils 0.2 10^3/uL (0.0-0.5); ABS Lymphocytes 1.2 10^3/uL (1.0-4.8); ABS Monocytes 1.3 10^3/uL (0.0-0.9); ABS Neutrophils 18.6 10^3/uL (1.5-7.6); ABS Nucleated RBC 0.01 10^3/ul; Eosinophil % 1.1 %; Hypochromasia 1+; Lymphocyte % 5.7 %
[2024-05-25] MEDS: cefTRIAXone 1 gm/50 mL D5W 1 GM/50 ML BAG IV SCH (14:25)
[2024-05-26 08:46] LABS: Hematocrit 28.7 % (35-45); Hemoglobin 9.1 g/dL (11.5-14.3); Mean Corpuscular Hemoglobin 30.1 pg (27-33); Mean Corpuscular Hgb Conc 31.6 g/dL (31-36); Mean Corpuscular Volume 95.1 fL (80-97); Mean Platelet Volume 8.6 fL (7.5-11.2); Platelet Count 300 10^3/uL (150-450); Red Blood Count 3.02 10^6/uL (3.63-4.92); Red Cell Distribution Width 18.3 % (12-17); White Blood Count 19.2 10^3/uL (3.8-11.8)
[2024-05-26 10:01] LABS: ABS Basophils 0.2 10^3/uL (0.0-0.1); ABS Eosinophils 0.2 10^3/uL (0.0-0.5); ABS Lymphocytes 1.1 10^3/uL (1.0-4.8); ABS Neutrophils 16.7 10^3/uL (1.5-7.6); ABS Nucleated RBC 0.01 10^3/ul; Anisocytosis 1+; Lymphocyte % 5.6 %; Stomatocytes 1+
[2024-05-26 10:19] LABS: Albumin 2.9 g/dL (3.2-5.2); Albumin/Globulin Ratio 1.1 (1-3); Calcium 9.2 mg/dL (8.6-10.3); Creatinine, Serum 1.05 mg/dL (0.51-0.95); Direct Bilirubin 1.7 mg/dL (0.03-0.18); Globulin 2.7 g/dL (2-4); Indirect Bilirubin 0.9 mg/dL (0.3-1.0); Potassium 3.6 mmol/L (3.5-5.0); Total Bilirubin 2.6 mg/dL (0.2-1.0); Total Protein 5.6 g/dL (6.4-8.9); eGFR CKD-EPI 62.7 (>60)
[2024-05-26 14:17] LABS: Cytomegalovirus IgG Antibody Negative (Negative)
[2024-05-26] MEDS: metroNIDAZOLE IV 500 MG/100ML 500 MG/100 ML BAG IVPB SCH (16:56)
[2024-05-27 08:27] LABS: Hematocrit 27.8 % (35-45); Mean Corpuscular Hemoglobin 30.5 pg (27-33); Mean Corpuscular Hgb Conc 32.2 g/dL (31-36); Mean Corpuscular Volume 94.7 fL (80-97); Mean Platelet Volume 8.6 fL (7.5-11.2); Platelet Count 290 10^3/uL (150-450); Red Blood Count 2.94 10^6/uL (3.63-4.92); Red Cell Distribution Width 18.6 % (12-17)
[2024-05-27 08:45] LABS: Albumin/Globulin Ratio 1.1 (1-3); Calcium 9.2 mg/dL (8.6-10.3); Creatinine, Serum 1.08 mg/dL (0.51-0.95); Direct Bilirubin 1.8 mg/dL (0.03-0.18); Globulin 2.8 g/dL (2-4); Indirect Bilirubin 0.9 mg/dL (0.3-1.0); Potassium 3.6 mmol/L (3.5-5.0); Total Bilirubin 2.7 mg/dL (0.2-1.0); Total Protein 5.8 g/dL (6.4-8.9); eGFR CKD-EPI 60.7 (>60)
[2024-05-27 09:34] LABS: ABS Eosinophils 0.1 10^3/uL (0.0-0.5); ABS Lymphocytes 1.2 10^3/uL (1.0-4.8); ABS Monocytes 1.1 10^3/uL (0.0-0.9); ABS Neutrophils 18.6 10^3/uL (1.5-7.6); ABS Nucleated RBC 0.01 10^3/ul; Eosinophil % 0.7 %; Lymphocyte % 5.7 %; RBC Morphology Normal (Normal)
[2024-05-27 13:11] LABS: Mitochondria M2 Antibody <0.1 U
[2024-05-27 14:15] VITALS: BP 111/70
[2024-05-27 14:34] LABS: EBV Capsid Ag IgG Ab Positive (Negative); EBV Capsid Ag IgM Ab Negative (Negative); Epstein-Barr Nuclear Antigen Positive (Negative)
[2024-05-27] MEDS ORDERED: CEFEPIME 2 GM in Dextrose 50 mL IV SCH (15:00)
== END 2024-05-27 15:50 | disposition left against medical advice (07) | DRG 720 ==
LOC: ED 18:04 → EDHOLD 21:29 → ICU 21:29 → MEDTELE 05-18 17:32
PROVIDERS: ADMIT Internal Medicine; ATTEND Internal Medicine